=== PATIENT | female | born 1980 | race Caucasian/White ===

== ENCOUNTER 2018-01-24 20:33 | Emergency (ER) | payer OTHER | END 2018-01-25 00:49 | disposition home or self-care (01) | LOC: FTE 01-25 00:49 | DX: R11.10 Vomiting, unspecified (principal); R19.7 Diarrhea, unspecified; R40.2412 Glasgow coma scale score 13-15, at arrival to emergency department; F17.210 Nicotine dependence, cigarettes, uncomplicated | CPT/HCPCS: 99282; Z7502 ==